=== PATIENT | female | born 1945 ===

== ENCOUNTER → 2022-02-10 13:35 | Outpatient (BNVA) | payer MEDICARE, SELFPAY | PROVIDERS: PCP Physician Assistant Medical; Visit Provider Internal Medicine Endocrinology, Diabetes & Metabolism | DX: M81.0 Age-related osteoporosis without current pathological fracture (principal) | CPT/HCPCS: 99202 ==

== ENCOUNTER → 2022-07-27 15:14 | Outpatient (BNVA) | payer MEDICARE, SELFPAY | PROVIDERS: PCP Physician Assistant Medical; Visit Provider Internal Medicine Endocrinology, Diabetes & Metabolism | DX: M81.0 Age-related osteoporosis without current pathological fracture (principal) | CPT/HCPCS: 99212 ==

== ENCOUNTER → 2023-01-25 12:39 | Outpatient (BNVA) | payer MEDICARE, SELFPAY | PROVIDERS: PCP Physician Assistant Medical; Visit Provider Internal Medicine Endocrinology, Diabetes & Metabolism | DX: M81.0 Age-related osteoporosis without current pathological fracture (principal) | CPT/HCPCS: 99212 ==

== ENCOUNTER 2024-01-29 13:45 | Outpatient (AMB) | payer MEDICARE, SELFPAY ==
--- NOTE | 2024-01-29 13:47 | A.OFFVIS_ITS ---
Vital Signs 01/29/24 13:49 Height 5 ft 2.91 in Weight 138 lb 14.259 oz BMI 24.7 BP 122/78 Pulse 72 Intake Visit Reasons: f/u osteoporosis Intake Note: Patient presents today for Osteoporosis follow up. Last seen by Dr. Velasquez on 01/25/2023. Systems Technician Required: No Accompanied by: Self / Same As Patient Allergies No Known Allergies Allergy (Verified 01/29/24 13:48) HPI Comments Details: The patient is a 78-year-old female who is seen today in follow-up for osteoporosis. She was 1st diagnosed 11/01/2021. She was started on alendronate 70 mg weekly, calcium and vitamin-D b.i.d. 07/27. She has no history of pathological fracture or ONJ. She takes all of her medications regularly. She occasionally uses omeprazole for occasional GERD. She denies ever using anticoagulant, anti epileptic or glucocorticoid medication. For weight-bearing exercise she walks up and down the stairs 10 times per day and does some housekeeping. Fracture history: No Height loss: 1 in but stable since her last visit [employer] history: regular menses, Menopause late 50s Denies history of kidney stones Denies family history of osteoporosis or fracture. UTD on dental cleanings and sees dentist every 6 months. No planned upcoming dental work or extractions. DXA dated 11/01/2021 shows T-score in the lumbar spine of-2.9 standard deviations and the T-score in the left femoral neck of-2.5 Labs: Secondary workup as previuously reviewed by Dr. Velasquez was negative. She denies bone pain PFSH Medical History Osteoporosis Surgical History History of colonoscopy Hx of eye surgery Family History Father Dialysis patient Mother Heart attack Social History Household Members: Friend(s) Alcohol intake: current Alcohol intake frequency: does not drink Patient Tobacco Use Status: Never used Tobacco Physical Exam Vital Signs: Last Vital Signs Pulse 72 01/29/24 13:49 BP 122/78 01/29/24 13:49 BMI result Body Mass Index 24.7 Const General: cooperative and healthy appearing Nutritional Appearance: average body habitus Orientation/consciousness: oriented to person Limitations: no limitations Neck Neck: Yes normal visual inspection and Yes no lymphadenopathy Thyroid: Thyroid normal Back/Spine/Pelvis Other: no tenderness over the vertebrae. Neuro General: oriented to person Assessment & Plan Assessment & Plan (1) Osteoporosis: Code(s): M81.0 - Age-related osteoporosis without current pathological fracture Category: Medical Plan: The patient has been on alendronate 70 mg weekly along with calcium vitamin-D supplementation b.i.d. since 07/27. We will obtain DEXA and blood work in addition to NTX urine. She would like to have the testing done at [facility] which is closer to her home. She was given orders for blood work, urine test and DEXA scan. If she has not heard from me about her results within 1 week of obtaining, she will contact me at the office. She will follow up in 1 year's time. Orders: Orders Vitamin D 25-OH Total Today M81.0 - Age-related osteoporosis without current pathological fracture XR DEXA axial skeleton Today M81.0 - Age-related osteoporosis without current pathological fracture XR DEXA vertrebral fracture Today M81.0 - Age-related osteoporosis without current pathological fracture Calcium Today M81.0 - Age-related osteoporosis without current pathological fracture Phosphorus Today M81.0 - Age-related osteoporosis without current pathological fracture Collagen Crosslinks NTX 7 Days M81.0 - Age-related osteoporosis without current pathological fracture Coding Level of Care Code Est Pt Level 3 (33824) Diagnoses Osteoporosis M81.0 Time Spent (min) 30 Comment I spent [30] minutes reviewing labs and diagnostic reports, reviewing previous provider no
[2024-01-29 13:49] VITALS: BP 122/78; PULSE 72; BMI 24.7
== END 2024-01-29 14:22 | disposition home or self-care (01) ==
PROVIDERS: PCP Physician Assistant Medical; Visit Provider Nurse Practitioner Adult Health
DX: M81.0 Age-related osteoporosis without current pathological fracture (principal)
CPT/HCPCS: 99214

== ENCOUNTER → 2024-01-29 13:45 | Outpatient (BNVA) | payer MEDICARE, SELFPAY | PROVIDERS: PCP Physician Assistant Medical; Visit Provider Nurse Practitioner Adult Health | DX: M81.0 Age-related osteoporosis without current pathological fracture (principal) | CPT/HCPCS: 99212 ==

== ENCOUNTER 2025-01-28 13:44 | Outpatient (AMB) | payer MEDICARE, SELFPAY ==
--- NOTE | 2025-01-28 13:49 | MHC.OFFVIS ---
Vital Signs 01/28/25 13:51 Height 5 ft 2.46 in Weight 143 lb 11.862 oz BMI 25.9 BP 146/78 H Blood Pressure Location Lt brachial Position Sitting Pulse 70 Pulse Source Pulse Oximeter Pulse Oximetry (%) 97 Oxygen Delivery Method Room Air Intake Visit Reasons: f/u Osteoporosis Intake Note: Patient present for Osteoporosis follow up visit. Field Identification Specialist Required: No Accompanied by: Self / Same As Patient Allergies No Known Allergies Allergy (Verified 01/28/25 13:52) Medication List - Last Reconciled 01/28/25 by Miko Velasquez MD alendronate 70 mg PO QWEEK calcium citrate-vitamin D3 315 mg-6.25 mcg (250 unit) 1 tab PO BID clonazepam 0.5 mg PO BEDTIME gabapentin 600 - 1,200 mg PO BEDTIME levothyroxine 125 mcg PO DAILY HPI Comments Details: 77 YO Female with is seen in consultation at the request of PCP for Osteoporosis. First diagnosed in 11/01/21. No history of pathologic fracture or ONJ. . Takes Calcium [id number] mg daily in divided doses. Takes 500 IU of Vitamin D daily. Denies ever using PPI, anticoagulant, antiepileptic or glucocorticoid medication. Not Does weight bearing exercise Fracture history: No Height loss: lost 1 inch [employer] A[employer] history: regular menses - menopause late 50 s Denies history of Kidney stones: Denies family history of Osteoporosis or hip fracture. UTD on dental cleanings and sees dentist every 6 months. No planned upcoming dental work or extractions. DXA dated 11/01/2021 shows T-score in the lumbar spine of-2.9 standard deviations and the T-score in the left femoral neck of-2.5 standard deviation: Labs: secondary workup was negative. On alendronate 70 mg q.week since 07/2022 The patient is a 79-year-old female presenting for osteoporosis management and preventative care. The patient has been on alendronate since July 2022, taking it once a week without any issues. She is active for her age and aims to prevent fractures. A urine test to assess the efficacy of alendronate was ordered but not completed due to technical issues. The patient is instructed to collect a second morning urine sample after fasting overnight. The patient is due for a bone density test in a year, which is part of her routine osteoporosis management. She is advised to schedule the test a month before her next visit. The patient reports lactose intolerance, which causes gastrointestinal discomfort when consuming dairy products. She is advised to use lactase supplements to manage symptoms. [facility] Medical History Osteoporosis Surgical History History of colonoscopy Hx of eye surgery Family History Father Dialysis patient Mother Heart attack Social History Household Members: Friend(s) Alcohol intake: current Alcohol intake frequency: does not drink Patient Tobacco Use Status: Never used Tobacco Physical Exam Vital Signs: Last Vital Signs Pulse 70 01/28/25 13:51 BP 146/78 H 01/28/25 13:51 Pulse Ox 97 01/28/25 13:51 Oxygen Delivery Method Room Air 01/28/25 13:51 BMI result Body Mass Index 25.9 Assessment & Plan Assessment & Plan (1) Osteoporosis: Code(s): M81.0 - Age-related osteoporosis without current pathological fracture Category: Medical Plan: This is a 79-year-old white female with a history of osteoporosis currently being treated with calcium and vitamin-D. Will continue current treatment with alendronate . We will check urine NTX. Assuming NTX is suppressed will repeat DEXA bone density 1 year's time and reassess need for alendronate that point 1. Osteoporosis Continue alendronate therapy. A urine test is ordered to assess efficacy, and a bone density test is scheduled for next year. I discussed the importance of continuing alendronate therapy to prevent fractures and the need for a urine test to assess its efficacy. We also talked about scheduling a bone density test in a year. - Continue taking alendronate once weekly. - Complete the urine test as instructed. - Schedule a bone density test for next year. - The patient had an opportunity to ask questions regarding treatment plan. The patient expressed understanding and agreement with the above treatment plan. Patient was informed and verbally consented to the use of an ambient scribe for clinic note documentation during this visit. Orders: Orders XR DEXA axial skeleton 1 Year M81.0 - Age-related osteoporosis without current pathological fracture Coding Level of Care Code Est Pt Level 3 (99156) Diagnoses Osteoporosis M81.0
[2025-01-28 13:51] VITALS: BP 146/78; PULSE 70; O2SAT 97; BMI 25.9
--- OUTSIDE RECORDS SUMMARY | 2025-01-28 16:19 | XMS_ITS | Data Portability ---
Author Organization [facility], Main Office Address [address] [facility] [address] [place] [id number] Care Team Providers Care Science Interpreter Name Role Phone RAJEEV HOOKS Technical Applications Scientist [facility] Sleep Medi cine PHYLLIS BROWN Molder Helper CHRISTIANO ZHENG Primary Care Provider [phone] KAREN SCHNEIDER Lead Mechanic [phone] Assessment No assessment recorded. Plan of Treatment Reminders Order Date Submit Date Provider Last Modified By Organization Details Last Modified Time Details Appointments FOLLOW UP 2024 01:30P M Christiano Zheng PAKenya Not available Not available Not available Lab BMP, serum or plasma 2024 025 ALEXANDER [facility] (Centralized Electronic Ordering - All Locations), Patient Can Go To The Location Of Their Choice, [id number] 01/28/2025 06:08:05 TSH, ultra-sen sitive, serum 2024 025 ALEXANDER [facility] (Centralized Electronic Ordering - All Locations), Patient Can Go To The Location Of Their Choice, [id number] 01/28/2025 06:08:06 HbA1c (hemoglob in A1c), blood 2024 025 ALEXANDER [facility] (Centralized Electronic Ordering - All Locations), Patient Can Go To The Location Of Their Choice, [id number] 10/14/2024 08:07:19 vitamin D, 25-hydrox y, total, serum 2024 025 ALEXANDER [facility], [address], [place], [address], 10/14/2024 08:07:20 CMP, serum or plasma 2024 025 NANCY [facility] (Centralized Electronic Ordering - All Locations), Patient Can Go To The Location Of Their Choice, [address] 10/14/2024 08:07:19 CBC w/ auto diff 2024 025 NANCY [facility] (Centralized Electronic Ordering - All Locations), Patient Can Go To The Location Of Their Choice, [address] 10/14/2024 08:07:18 TSH + free T4, serum 2023 024 NANCY [facility] (Centralized Electronic Ordering - All Locations), Patient Can Go To The Location Of Their Choice, [id number] 07/23/2024 06:08:10 Referral None recorded. Procedures None recorded. Surgeries None recorded. Imaging None recorded. Medication Orders olmesarta n 20 mg tablet [address] [facility] #[id number], [address] [place], [address], 10/22/2024 15:13:15 Patient Targets Encounter Date Encounter Id Patient Goals Patient Target Last Modified By Organization Details Last Modified Time 09/15/2024 [id number] vermin exterminator goal of Blood Pressure 140 / 90 Not available Not available Not available vermin exterminator goal of Exercise level Not available Not available Not available vermin exterminator goal of Tobacco Smoking Status Not available Not available Not available 09/15/2024 [id number] Pt advised and agrees to eat a low salt low fat diet; to do moderate exercise (such as walking) 150 minutes per week; to limit alcohol intake (goal of 2 drinks per day or less for men or 1 for woman). and to monitor dietary sodium. Will monitor home blood pressures and bring readings to appointments. Patient preferences and goals incorporated in plan and updated/modifie d as needed to reflect progress toward goal. pmadden Not available 09/15/2024 15:30:19 10/22/2024 [id number] residential goal of Blood Pressure 140 / 90 Not available Not available Not available vermin exterminator goal of Exercise level Not available Not available Not available vermin exterminator goal of Tobacco Smoking Status Not available Not available Not available 10/22/2024 [id number] Pt advised and agrees to eat a low salt low fat diet; to do moderate exercise (such as walking) 150 minutes per week; to limit alcohol intake (goal of 2 drinks per day or less for men or 1 for woman). and to monitor dietary sodium. Will monitor home blood pressures and bring readings to appointments. Patient preferences and goals incorporated in plan and updated/modifie d as needed to reflect progress toward goal. [email or web address] Not available 10/22/2024 15:08:19 Patient Instructions Encounter Date Encounter Id Patient Instructions Last Modified By Organization Details Last Modified Time 02/11/2024 [id number] During [facility] f/u call, all current and discharge medications (OTC, herbal therapies, supplements) reviewed and reconciled with patient, including potential side effects, drug interactions, instructions, and the consequences of not taking medication. Reviewed potential barriers to medication adherence, such as side effects from medication or cost of medication. wally Not available 02/11/2024 11:10:26 02/18/2024 [id number] At [facility] follow up visit, all current and discharge medications (OTC, herbal therapies, supplements) reviewed and reconciled with patient and or caregiver, including potential side effects, drug interactions, instructions, and the consequences of not taking medication. Reviewed potential barriers to medication adherence, such as side effects from medication or cost of medication. [email or web address] Not available 02/18/2024 14:25:01 04/09/2024 [id number] Medications (OTC , herbal therapies, supplements) reviewed and reconciled with patient and or caregiver, including potential side effects, drug interactions, instructions, and the consequences of not taking medication. Reviewed potential barriers to medication adherence, such as side effects from medication or cost of medication. pmadden Not available 04/09/2024 14:48:36 09/15/2024 [id number] advance care planning: care instructions pmadden Not available 09/15/2024 15:30:28 low sodium diet (2,000 milligram): care instructions pmadden Not available 09/15/2024 15:30:28 dash diet: care instructions pmadden Not available 09/15/2024 15:30:28 preventing falls : care instructions pmadden Not available 09/15/2024 15:30:28 well visit, over 65: care instructions pmadden Not available 09/15/2024 15:30:28 Medications (OTC , herbal therapies, supplements) reviewed and reconciled with patient and or caregiver, including potential side effects, drug interactions, instructions, and the consequences of not taking medication. Reviewed potential barriers to medication adherence, such as side effects from medication or cost of medication. pmadden Not available 09/15/2024 15:30:15 10/22/2024 [id number] dash diet: care instructions pmadden Not available 10/22/2024 15:13:13 check nonfasting labs before next office visit pmadden Not available 10/22/2024 15:14:35 Medications (OTC , herbal therapies, supplements) reviewed and reconciled with patient and or caregiver, including potential side effects, drug interactions, instructions, and the consequences of not taking medication. Reviewed potential barriers to medication adherence, such as side effects from medication or cost of medication. pmadden Not available 10/22/2024 15:08:43 Reason for Referral None Reported. Results Created Date Observation Date Name Description Value Unit Range Abnormal Flag Note LastModifiedBy Organization Detail LastModifiedTime 02/11/2002/12/2024 TSH+F REE T4 TSH 12.200 uIU/m L 0.450- 4.500 above high normal Not Available [facility] ([facility]) [address] [place], [address], 02/12/2024 06:08:15 02/11/2002/12/2024 TSH+F REE T4 T4,free(dire ct) 1.07 NG/dL 0.82-1 .77 Not Available [facility] ([facility]) [address] [place], [address], 02/12/2024 06:08:15 03/25/20 24 03/26/2024 TSH TSH 5.370 uIU/m L 0.450- 4.500 above high normal Not Available [facility] ([facility]) [address] [place], [address], 03/26/2024 06:09:11 07/22/2007/23/2024 TSH+F REE T4 TSH 0.304 uIU/m L 0.450- 4.500 below low normal Not Available [facility] ([facility]) [address] [facility] [place], [address], 07/23/2024 06:08:10 07/22/20 24 07/23/2024 TSH+F REE T4 T4,free(dire ct) 1.91 NG/dL 0.82-1 .77 above high normal Not Available [facility] ([facility]) [address] [place], [address], 07/23/2024 06:08:10 10/14/19 25 10/14/2024 TSH RFX ON ABNOR MAL TO FREE T4 TSH 2.950 uIU/m L 0.450- 4.500 normal Not Available [facility] ([facility]) [address] [place], [address], 10/14/2024 06:07:23 10/14/19 25 10/14/2024 CBC WITH DIFFE RENTI AL/PL ATELE T WBC 5.2 x10e3 /uL 3.4-10 .8 normal Not Available [facility] ([facility]) [address] [place], [address], 10/14/2024 08:07:18 10/14/19 25 10/14/2024 CBC WITH DIFFE RENTI AL/PL ATELE T RBC 4.33 x10e6 /uL 3.77-5 .28 normal Not Available [facility] ([facility]) [address] [place], [address], 10/14/2024 08:07:18 10/14/19 25 10/14/2024 CBC WITH DIFFE RENTI AL/PL ATELE T hemoglobin 14.0 g/dL 11.1-1 5.9 normal Not Available [facility] ([facility]) [address] [place], [address], 10/14/2024 08:07:18 10/14/1910/14/2024 CBC WITH DIFFE RENTI AL/PL ATELE T hematocrit 41.0 % 34.0-4 6.6 normal Not Available [facility] ([facility]) [address] [facility], [place], [address], 10/14/2024 08:07:18 10/14/1910/14/2024 CBC WITH DIFFE RENTI AL/PL ATELE T MCV 95 fL 79-97 normal Not Available [facility] ([facility]) [address] [place], [address], 10/14/2024 08:07:18 10/14/1910/14/2024 CBC WITH DIFFE RENTI AL/PL ATELE T MCH 32.3 pg 26.6-3 3.0 normal Not Available [facility] ([facility]) [address] [place], [address], 10/14/2024 08:07:18 10/14/1910/14/2024 CBC WITH DIFFE RENTI AL/PL ATELE T MCHC 34.1 g/dL 31.5-3 5.7 normal Not Available [facility] ([facility]) [address] [place], [address], 10/14/2024 08:07:18 10/14/1910/14/2024 CBC WITH DIFFE RENTI AL/PL ATELE T RDW 12.1 % 11.7-1 5.4 Not Available [facility] ([facility]) [address] [place], [address], 10/14/2024 08:07:18 10/14/1910/14/2024 CBC WITH DIFFE RENTI AL/PL ATELE T platelets 244 x10e3 /uL 150-45 0 normal Not Available [facility] ([facility]) [address] [place], [address], 10/14/2024 08:07:18 10/14/19 25 10/14/2024 CBC WITH DIFFE RENTI AL/PL ATELE T neutrophils 73 % not estab. normal Not Available [facility] ([facility]) [address] [facility], [place], [address], 10/14/2024 08:07:18 10/14/19 25 10/14/2024 CBC WITH DIFFE RENTI AL/PL ATELE T lymphs 18 % not estab. normal Not Available [facility] ([facility]) [address] [facility], [place], [address], 10/14/2024 08:07:18 10/14/19 25 10/14/2024 CBC WITH DIFFE RENTI AL/PL ATELE T monocytes 7 % not estab. normal Not Available [facility] ([facility]) [address] [facility], [place], [address], 10/14/2024 08:07:18 10/14/19 25 10/14/2024 CBC WITH DIFFE RENTI AL/PL ATELE T eos 1 % not estab. normal Not Available [facility] ([facility]) [address] [facility], [place], [address], 10/14/2024 08:07:18 10/14/19 25 10/14/2024 CBC WITH DIFFE RENTI AL/PL ATELE T basos 1 % not estab. normal Not Available [facility] ([facility]) [address] [facility], [place], [address], 10/14/2024 08:07:18 10/14/19 25 10/14/2024 CBC WITH DIFFE RENTI AL/PL ATELE T immature cells BOILERMAKER MECHANIC Not Available [facility] ([facility]) [address] [facility], [place], [address], 10/14/2024 08:07:18 10/14/19 25 10/14/2024 CBC WITH DIFFE RENTI AL/PL ATELE T neutrophils (absolute) 3.8 x10e3 /uL 1.4-7. 0 normal Not Available [facility] ([facility]) [address] [facility], [place], [address], 10/14/2024 08:07:18 10/14/19 25 10/14/2024 CBC WITH DIFFE RENTI AL/PL ATELE T lymphs (absolute) 0.9 x10e3 /uL 0.7-3. 1 normal Not Available [facility] ([facility]) [address] [facility], [place], [address], 10/14/2024 08:07:18 10/14/19 25 10/14/2024 CBC WITH DIFFE RENTI AL/PL ATELE T monocytes(ab solute) 0.4 x10e3 /uL 0.1-0. 9 normal Not Available [facility] ([facility]) [address] [facility], [place], [address], 10/14/2024 08:07:18 10/14/19 25 10/14/2024 CBC WITH DIFFE RENTI AL/PL ATELE T eos (absolute) 0.1 x10e3 /uL 0.0-0. 4 normal Not Available [facility] ([facility]) [address] [facility], [place], [address], 10/14/2024 08:07:18 10/14/19 25 10/14/2024 CBC WITH DIFFE RENTI AL/PL ATELE T baso (absolute) 0.0 x10e3 /uL 0.0-0. 2 normal Not Available [facility] ([facility]) [address] [facility], [place], [address], 10/14/2024 08:07:18 10/14/19 25 10/14/2024 CBC WITH DIFFE RENTI AL/PL ATELE T immature granulocytes 0 % not estab. Not Available [facility] ([facility]) [address] [facility], [place], [address], 10/14/2024 08:07:18 10/14/19 25 10/14/2024 CBC WITH DIFFE RENTI AL/PL ATELE T immature grans (abs) 0.0 x10e3 /uL 0.0-0. 1 Not Available [facility] ([facility]) [address] [facility], [place], [address], 10/14/2024 08:07:18 10/14/19 25 10/14/2024 CBC WITH DIFFE RENTI AL/PL ATELE T NRBC BOILERMAKER MECHANIC Not Available [facility] ([facility]) [address] [facility], [place], [address], 10/14/2024 08:07:18 10/14/19 25 10/14/2024 CBC WITH DIFFE RENTI AL/PL ATELE T hematology comments: BOILERMAKER MECHANIC Not Available [facility] ([facility]) [address] [facility], [place], [address], 10/14/2024 08:07:18 10/14/19 25 10/14/2024 COMP. METAB OLIC PANEL (14) glucose 118 mg/dL 70-99 above high normal Not Available [facility] ([facility]) [address] [facility], [place], [address], 10/14/2024 08:07:19 10/14/19 25 10/14/2024 COMP. METAB OLIC PANEL (14) BUN 16 mg/dL 8-27 normal Not Available [facility] ([facility]) [address] [facility], [place], [address], 10/14/2024 08:07:19 10/14/19 25 10/14/2024 COMP. METAB OLIC PANEL (14) creatinine 0.97 mg/dL 0.57-1 .00 normal Not Available [facility] ([facility]) [address] [facility], [place], [address], 10/14/2024 08:07:19 10/14/19 25 10/14/2024 COMP. METAB OLIC PANEL (14) eGFR 59 mL/mi n/1.7 3 >59 below low normal Not Available [facility] ([facility]) [address] [place], [address], 10/14/2024 08:07:19 10/14/19 25 10/14/2024 COMP. METAB OLIC PANEL (14) BUN/creatini ne ratio 16 12-28 normal Not Available [facility] ([facility]) [address] [place], [address], 10/14/2024 08:07:19 10/14/19 25 10/14/2024 COMP. METAB OLIC PANEL (14) sodium 144 mmol/ L 134-14 4 normal Not Available [facility] ([facility]) [address] [place], [address], 10/14/2024 08:07:19 10/14/19 25 10/14/2024 COMP. METAB OLIC PANEL (14) potassium 3.6 mmol/ L 3.5-5. 2 normal Not Available [facility] ([facility]) [address] [place], [address], 10/14/2024 08:07:19 10/14/19 25 10/14/2024 COMP. METAB OLIC PANEL (14) chloride 103 mmol/ L 96-106 normal Not Available [facility] ([facility]) [address] [facility] [place], [address], 10/14/2024 08:07:19 10/14/19 25 10/14/2024 COMP. METAB OLIC PANEL (14) carbon dioxide, total 26 mmol/ L 20-29 normal Not Available [facility] ([facility]) [address] [facility] [place], [address], 10/14/2024 08:07:19 10/14/19 25 10/14/2024 COMP. METAB OLIC PANEL (14) calcium 10.0 mg/dL 8.7-10 .3 normal Not Available [facility] ([facility]) [address] [facility] [place], [address], 10/14/2024 08:07:19 10/14/19 25 10/14/2024 COMP. METAB OLIC PANEL (14) protein, total 6.5 g/dL 6.0-8. 5 normal Not Available [facility] ([facility]) [address] [facility] [place], [address], 10/14/2024 08:07:19 10/14/19 25 10/14/2024 COMP. METAB OLIC PANEL (14) albumin 4.4 g/dL 3.8-4. 8 normal Not Available [facility] ([facility]) [address] [facility] [place], [address], 10/14/2024 08:07:19 10/14/19 25 10/14/2024 COMP. METAB OLIC PANEL (14) globulin, total 2.1 g/dL 1.5-4. 5 Not Available [facility] ([facility]) [address] [facility] [place], [address], 10/14/2024 08:07:19 10/14/19 25 10/14/2024 COMP. METAB OLIC PANEL (14) bilirubin, total 0.6 mg/dL 0.0-1. 2 normal Not Available [facility] ([facility]) [address] [facility] [place], [address], 10/14/2024 08:07:19 10/14/19 25 10/14/2024 COMP. METAB OLIC PANEL (14) alkaline phosphatase 67 IU/L 44-121 normal Not Available [facility] ([facility]) [address] [facility] [place], [address], 10/14/2024 08:07:19 10/14/19 25 10/14/2024 COMP. METAB OLIC PANEL (14) AST (SGOT) 25 IU/L 0-40 normal Not Available [facility] ([facility]) [address] [facility] [place], [address], 10/14/2024 08:07:19 10/14/19 25 10/14/2024 COMP. METAB OLIC PANEL (14) ALT (SGPT) 14 IU/L 0-32 normal Not Available [facility] ([facility]) [address] [place], [address], 10/14/2024 08:07:19 10/14/19 25 10/14/2024 HEMOG LOBIN A1C hemoglobin A1C 5.2 % 4.8-5. 6 normal Predi abete s: 5.7 - 6.4 Diabe hortensia: >6.4 Glyce alanna contr ol for adult s with diabe hortensia: <7.0 Not Available [facility] ([facility]) [address] [facility], [place], [address], 10/14/2024 08:07:19 10/14/1910/14/2024 VITAM IN D, 25-HY DROXY vitamin D, 25-hydroxy 34.5 NG/mL 30.0-1 00.0 Vitam in D defic iency has been defin ed by the Insti tute of Medic ine and an Endoc rine Socie ty pract ice guide line as a level of serum 25-OH vitam in D less than 20 ng/mL (1,2) . The Endoc rine Socie ty went on to [facility] er defin e vitam in D insuf ficie ncy as a level betwe en 21 and 29 ng/mL (2). 1. IOM (Inst itute of Medic ine). 2010. Dieta ry refer ence intak es for calci um and D. Nabil gaffney [place]: The [facility] Press . 2. Heri blancas MF, Maggi velasquez [place], Dayana off-F yusef i STEVENSON, et al. Evalu ation , treat ment, and preve ntion of vitam in D defic iency : an Endoc rine Socie ty clini donna pract ice guide line. JCEM. 2010; 96(7) :1911 -30. Not Available [facility] ([facility]) [address] [facility], [place], [address], 10/14/2024 08:07:20 Result Notes None recorded. Problems Name Problem SNOMED Code Status Onset Date Resolution Date Notes Provider Name and Address Organization Details Recorded Time Epigastr ic pain 36020629 Completed 201303/12/2014 RECORDED 10/09/19 14 10:01AM BY MARGO OLIVA MA, CHEPE ON/ADDEN DUM Not Available [facility] 4 12:41:44 Screenin g for malignan t neoplasm of breast Completed 201103/12/2014 RECORDED 07/25/20 12 9:39AM BY MARGO OLIVA MA, CHEPE ON/ADDEN DUM Not Available [facility] 4 12:41:44 Screenin g for malignan t neoplasm of colon Completed 201103/12/2014 RECORDED 07/25/20 12 9:39AM BY MAGRO OLIVA MA, CHEPE ON/ADDEN DUM Not Available [facility] 4 12:41:45 Elevated blood-pr essure reading without diagnosi s of hyperten deb 108872278 Completed 201103/12/2014 RECORDED 07/25/20 12 9:39AM BY MARGO OLIVA MA, ANNOTATI ON/ADDEN DUM Not Available [facility] 4 12:41:45 General examinat ion of patient Completed 200703/12/2014 RECORDED 04/03/20 08 8:50AM BY KAREN LOERA, CHEPE ON/ADDEN DUM Not Available [facility] 4 12:41:45 Otalgia 01220149 Completed 201103/12/2014 RECORDED 07/25/20 12 9:39AM BY MARGO OLIVA MA, JETATI ON/ADDEN DUM Not Available [facility] 4 12:41:45 Epigastr ic pain 92075262 Completed 201303/13/2014 RECORDED 10/09/19 14 10:01AM BY MARGO OLIVA MA, JETATI ON/ADDEN DUM Not Available [facility] 4 03:44:14 Screenin g for malignan t neoplasm of breast Completed 201103/13/2014 RECORDED 07/25/20 12 9:39AM BY MARGO OLIVA MA, ANNOTATI ON/ADDEN DUM Not Available [facility] 4 03:44:14 Screenin g for malignan t neoplasm of colon Completed 201103/13/2014 RECORDED 07/25/20 12 9:39AM BY MARGO OLIVA MA, ANNOTATI ON/ADDEN DUM Not Available [facility] 4 03:44:14 Elevated blood-pr essure reading without diagnosi s of hyperten deb 530680455 Completed 201103/13/2014 RECORDED 07/25/20 12 9:39AM BY MARGO OLIVA MA, ANNOTATI ON/ADDEN DUM Not Available [facility] 4 03:44:14 General examinat ion of patient Completed 200703/13/2014 RECORDED 04/03/20 08 8:50AM BY CHEPE CASE ON/ADDEN DUM Not Available [facility] 4 03:44:14 Otalgia 54726673 Completed 201103/13/2014 RECORDED 07/25/20 12 9:39AM BY MARGO OLIVA MA, ANNOTATI ON/ADDEN DUM Not Available [facility] 4 03:44:14 Eczema 16584561 Active Not Available [facility] 3 12:35:39 Osteoart hritis of knee 194326435 Active 2013 Not Available [facility] 3 12:35:39 Advance directiv e discusse d with patient 461877557 Active Not Available [facility] 3 12:35:39 Skin lesion 73036004 Completed 10/25/2016 KAREN Arredondo MA [facility] 7 13:47:11 Chronic kidney disease stage 3 842306555 Active 2020 Not Available [facility] 3 12:35:39 Restless legs 36280829 Active 2021 Not Available [facility] 3 12:35:39 History of thyroide ctomy 497342305 Active 2021 Not Available [facility] 3 12:35:39 Heart murmur 71583735 Active 2021 Not Available [facility] 3 12:35:39 Anxiety 57125781 Active 2021 Not Available [facility] 3 12:35:39 Dysfunct ion of eustachi an tube 67486763 Active 2022 Not Available [facility] 3 12:35:39 Dysfunct ion of eustachi an tube 83876876 Active 2022 Not Available [facility] 3 12:35:39 [facility] hyperten deb 47406604 Active 2024 Seth degroot [facility] 5 14:50:25 Impaired fasting glycemia 968178357 Active 2024 Seth degroot [facility] 5 14:56:20 Epigastr ic pain 01928178 Completed 201302/17/2014 RECORDED 10/09/19 14 10:01AM BY MARGO OLIVA MA, CHEPE ON/ADDEN DUM Not Available [facility] 4 14:22:45 Adult health examinat ion Completed 201303/31/2020 Christiano Zheng PA-C [address] [facility] [address], [place], [phone] , [facility] 0 15:33:03 Screenin g for malignan t neoplasm of breast Completed 201102/17/2014 RECORDED 07/25/20 12 9:39AM BY MARGO OLIVA MA, CHEPE ON/ADDEN DUM Not Available [facility] 4 14:22:46 Screenin g for malignan t neoplasm of colon Completed 201102/17/2014 RECORDED 07/25/20 12 9:39AM BY MARGO OLIVA MA, CHEPE ON/ADDEN DUM Not Available [facility] 4 14:22:46 Elevated blood-pr essure reading without diagnosi s of hyperten deb 690274842 Completed 201102/17/2014 RECORDED 07/25/20 12 9:39AM BY MARGO OLIVA MA, CHEPE ON/ADDEN DUM Not Available [facility] 4 14:22:46 [facility] hyperten deb 46535868 Completed 201303/31/2020 Seth degroot, [facility] 5 14:50:25 Malaise and fatigue 518698548 Active 2013 Not Available [facility] 3 12:35:39 Malaise and fatigue 104980668 Completed 201102/17/2014 RECORDED 07/25/20 12 9:39AM BY MARGO OLIVA MA, CHEPE ON/ADDEN DUM KAREN Arredondo, [facility] 7 13:46:52 Influenz a vaccine needed [id number] 06 Completed 201303/20/2014 RECORDED 10/09/19 14 10:15AM BY MARGO OLIVA MA, OFFICE VISIT [facility] [address] [place] [address], [place], [phone] , [facility] 4 13:06:54 General examinat ion of patient Completed 200702/17/2014 RECORDED 04/03/20 08 8:50AM BY KAREN LOERA, CHEPE ON/ADDEN DUM Not Available [facility] 4 14:22:46 Gastroes ophageal reflux disease 675965506 Active 2013 Not Available [facility] 3 12:35:39 Hyperlip idemia 47461823 Active 2013 Not Available [facility] 3 12:35:39 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 I rec. that you increase your suppleme nt a little more - double up on your 112mcg 3x/week (Mon/Wed /Fri) and continue 1 tab daily on all other days. - Carol Zheng PA-C [address] [facility] [address], [place], [address] , [facility] 4 19:46:57 Hypothyr oidism 29700838 Completed 200902/17/2014 RECORDED 01/12/20 10 2:12PM BY MARGO OLIVA MA, ANNOTATI ON/ADDEN DUM Christiano Zheng PA-C [address] [facility] [address], [place], [address] , [facility] 4 19:46:57 Insomnia 297062625 Active 2013 Not Available [facility] 3 12:35:39 Menopaus al symptom 64180577 Active 2013 Not Available [facility] 3 12:35:39 Patient status finding [id number] Completed 201303/20/2014 RECORDED 10/09/19 14 10:02AM BY MARGO OLIVA MA, OFFICE VISIT THIAGO Szymanski [address] [facility] [address], [place], [address] , [facility] 4 13:06:54 Osteopor osis 61636251 Active 2013 Not Available [facility] 3 12:35:39 Otalgia 04753570 Completed 201102/17/2014 RECORDED 07/25/20 12 9:39AM BY MARGO OLIVA MA, ANNOTATI ON/ADDEN DUM Not Available [facility] 4 14:22:47 [facility] [id number] Completed 201304/23/2019 Christiano Zheng PA-C [address], [place], [address] , [facility] 9 14:12:37 Vitamin D deficien 99655080 Active 2013 Not Available [facility] 3 12:35:39 Problem Notes None recorded. Procedures Surgical History Date Name Laterality Status Provider Name and Address Organization Details Recorded Time 5 Advanced Care Planning completed Taylor Arrington LPN [facility] 09/15/2024 14:12:21 3 Colonoscopy completed Christiano Zheng PA-C [address] [facility] [address], [place], [address], [facility] 03/05/2023 14:17:23 2 Most Recent Bone Density completed Nicole Jensen [facility] 11/22/2021 16:32:58 2 Most Recent Mammogram completed Nicole Jensen [facility] 11/08/2021 14:47:42 2 Mammogram Screening completed Christiano Zheng PA-C [address] [facility] [address], [place], [address], [facility] 09/10/2023 13:52:05 0 Six-Item Cognitive Test completed Anna Todd MA [facility] 03/31/2020 14:54:49 9 Mini-Cog Test completed Margo delaney MA [facility] 10/21/2018 15:24:49 8 Eye Surgery completed Margo delaney MA [facility] 10/21/2018 15:19:56 8 Mini-Cog Test completed Margo delaney MA [facility] 10/26/2017 10:44:50 7 Fall Risk Assessment completed Margo delaney [facility] 10/25/2016 13:57:44 7 Mini-Cog Test completed Margo delaney [facility] 10/25/2016 13:59:19 6 Fall Risk Assessment completed Margo delaney [facility] 10/29/2015 10:36:57 6 Mini-Cog Test completed Margo delaney, [facility] 10/29/2015 10:38:54 6 Advanced Care Planning completed Margo delaney [facility] 10/29/2015 10:27:51 4 Dxa bone density ashkan vrt fx completed Margo delaney [facility] 10/25/2016 13:49:29 1 Date of Last Colonoscopy completed Maria Guadalupe Lord [facility] 10/09/2014 10:44:40 0 Cataract Surgery completed Margo delaney [facility] 10/21/2018 15:19:15 Thyroid Surgery completed Christiano Zheng PA-C [address], [address], [facility] 04/23/2019 14:08:22 Imaging Results None recorded. Procedure Notes None recorded. Medical Equipment None Reported. Allergies No known drug allergies Medications Name Sig Start Date Stop Date Status Note LastModified by Organization Details LastModified Time Vitamin C 500 mg tablet Take 1 tablet every day by oral route. active Not Available Not Available No t Available triamcino lone acetonide 0.5 % topical cream APPLY A THIN LAYER TO THE AFFECTED AREA(S) BY TOPICAL ROUTE 2 TIMES PER DAY 03/31 completed Not Available Not Available Not Available sucralfat e 1 gram tablet Take 1 tablet twice a day by oral route for 30 days. active Not Available Not Available No t Available alendrona te 70 mg tablet TAKE 1 TABLET BY MOUTH EVERY WEEK active Not Available Not Available No t Available clonazepa m 0.5 mg tablet TAKE 1 TABLET BY MOUTH EVERY DAY AT BEDTIME NEEDED FOR 30 DAYS 09/15 completed Not Available Not Available Not Available Ferrex 150 mg iron capsule TAKE ONE CAPSULE BY MOUTH EVERY DAY 10/22 completed Not Available Not Available Not Available clonazepa m 1 mg tablet Take 1 tablet every day by oral route at bedtime for 30 days. 10/21 completed Not Available Not Available Not Available omeprazol e 40 mg capsule,d elayed release TAKE 1 CAPSULE BY MOUTH TWICE A DAY 12/19 completed Not Available Not Available Not Available Fluticaso ne Propionat e (Inhal) 50 mcg/BLIST inhl powd DAILY 06/23 completed RECORDED 09/06/19 10 1:22PM BY HEAVEN JORDAN I, MEDICATI ON AUTO-DANIEL CTIVATIO N; Not Available Not Available Not Available erythromy harriett 5 mg/gram (0.5 %) eye ointment APPLY 1/4INCH STRIP TO THE RIGHT EYE AT BEDTIME 09/10 completed PRN Not Available Not Available Not Available levothyro xine 125 mcg tablet TAKE 1 TABLET BY MOUTH EVERY DAY 08/25 completed Not Available Not Available Not Available gabapenti n 300 mg capsule TAKE 1-3 CAPSULES BY MOUTH AT BEDTIME FOR RLS 09/15 completed Not Available Not Available Not Available doxycycli ne hyclate 100 mg tablet 04/23 completed Not Available Not Available Not Available levothyro xine 112 mcg tablet TAKE 1 TABLET BY MOUTH EVERY DAY AND TAKE 2 TABLETS ON SUN/SUN active Not Available Not Available No t Available Vitamin D 50,000 unit capsule ONCE A WEEK 01/11 completed RECORDED 01/12/20 10 3:23PM BY RAJI HELM MD, OFFICE VISIT;TH IS ORDER DISCONTI NUED PER MEDI-SPA N. Not Available Not Available Not Available olmesarta n 20 mg tablet TAKE 1 TABLET BY MOUTH EVERY DAY 2024 active Not Available Not Available Not Avai lable azithromy harriett 500 mg tablet 10/21 completed Not Available Not Available Not Available Vitamin D3 25 mcg (1,000 unit) capsule Take 1 capsule every other day by oral route. 03/03 completed Not Available Not Available Not Available gabapenti n 300 mg tablet Take 4 tablets every day by oral route at bedtime. 08/18 completed sleep clinic Not Available Not Available Not Available Boostrix Tdap 2.5 Lf unit-8 mcg-5 Lf/0.5 mL intramusc ular syringe 10/21 completed Not Available Not Available Not Available Chilo's Leg Cramp 3 caplets hs active Not Available Not Available No t Available cholecalc iferol (vitamin D3) 50 mcg (2,000 unit) capsule TAKE 1 CAPSULE BY MOUTH EVERY DAY 03/31 completed Not Available Not Available Not Available calcium 315 mg (as citrate)- vitamin D3 6.25 mcg (250 unit) tablet TAKE 1 TABLET BY MOUTH TWICE A DAY 2023 active takes daily Not Available Not Available Not Available Suprep Bowel Prep Kit 17.5 gram-3.13 gram-1.6 gram oral solution COMPLETE PER SPLIT PREP INS 09/06 completed Not Available Not Available Not Available Osteo Bi-Flex 250 mg-200 mg tablet DAILY 09/28 completed RECORDED 09/28/19 11 11:05AM BY MARGO OLIVA MA, OFFICE VISIT; Not Available Not Available Not Available Fluarix Quad 2886-3458 (PF) 60 mcg (15 mcg x 4)/0.5 mL IM syringe active Not Available Not Available Not Available Fluvirin (PF) 45 mcg (15 mcg x3)/0.5 mL intramusc ular syringe active Not Available Not Available Not Available Fluad 65yr up(PF)45 mcg(15 mcgx3)/0. 5 mL intramusc ular syringe 10/21 completed Not Available Not Available Not Available Shingrix (PF) 50 mcg/0.5 mL intramusc ular suspensio n, kit 01/26 completed Not Available Not Available Not Available Fluad Quad (65yr up)(PF) 60 mcg (15 mcg x 4)/0.5mL IM syringe PHARMACY ADMINIST ERED 12/19 completed Not Available Not Available Not Available Vitals Date Recorded Systolic blood pressure Diastolic blood pressure Provider Name and Address Organization Details Last Updated DateTime 09/15/2024 150 mm[Hg] 82 mm[Hg] Christiano Zheng PA-C [address] [address], [place], [address], [facility] 09/15/2024 15:26:27 Date Recorded Body height Body mass index (BMI) Body weight Heart rate Oxygen saturation Oxygen saturation in Arterial blood by Pulse oximetry Body temperature Systolic blood pressure Diastolic blood pressure Provider Name and Address Organization Details Last Updated DateTime 5 162.56 cm 21.6 kg/m2 55244.6 4 g 66 /min 98 % 98 % 98.3 [degF] 165 mm[Hg] 89 mm[Hg] Taylor Arrington LPN [facility] 5 14:22:38 Date Recorded Systolic blood pressure Diastolic blood pressure Provider Name and Address Organization Details Last Updated DateTime 10/22/2024 142 mm[Hg] 90 mm[Hg] Seth Hays [facility] 10/22/2024 14:44:28 Date Recorded Body height Body mass index (BMI) Body weight Oxygen saturation Oxygen saturation in Arterial blood by Pulse oximetry Heart rate Body temperature Systolic blood pressure Diastolic blood pressure Provider Name and Address Organization Details Last Updated DateTime 5 162.56 cm 23.7 kg/m2 62479.7 5 g 99 % 99 % 123 /min 97.8 [degF] 148 mm[Hg] 94 mm[Hg] Anna Todd MA [facility] 5 14:14:34 Date Recorded Body height Body mass index (BMI) Body weight Heart rate Oxygen saturation Oxygen saturation in Arterial blood by Pulse oximetry Body temperature Systolic blood pressure Diastolic blood pressure Provider Name and Address Organization Details Last Updated DateTime 4 162.56 cm 23.5 kg/m2 94232.1 5 g 70 /min 97 % 97 % 97.9 [degF] 142 mm[Hg] 89 mm[Hg] Naida Wood MA [facility] 4 14:29:53 Date Recorded Body height Body mass index (BMI) Body weight Heart rate Oxygen saturation Oxygen saturation in Arterial blood by Pulse oximetry Body temperature Systolic blood pressure Diastolic blood pressure Provider Name and Address Organization Details Last Updated DateTime 4 162.56 cm 23.9 kg/m2 86511.7 4 g 69 /min 97 % 97 % 97.2 [degF] 152 mm[Hg] 90 mm[Hg] Natty RdzmarinaKAREN [facility] 14:05:01 Date Recorded Systolic blood pressure Diastolic blood pressure Provider Name and Address Organization Details Last Updated DateTime 04/09/2024 138 mm[Hg] 82 mm[Hg] Nicole Emerson [facility] 04/09/2024 14:26:21 Social History Question Answer Notes LastModified by Organizat ion Details LastModified Time Tobacco Smoking Status Never Smoker Maria Guadalupe Lord MA [facility] 10/09/2014 10:43:16 Do You Have An Advance Directive? Yes Information not available 12/19/2021 Animal Exposure? Yes Informat ion not available 12/19/2021 Do You Wear A Helmet When Biking? Yes Information not available 12/19/2021 Is Blood Transfusion Acceptable In An Emergency? Yes Information not available 10/09/2014 What Is Your Level Of Caffeine Consumption? Moderate Diet Sodas Daily Information not available 09/06/2022 How Much Tobacco Do You Chew? None Information not available 10/09/2014 In The 14 Days Before Symptom Onset, Have You Had Close Contact With A Laboratory-confi rmed COVID-19 While That Case Was Ill? No Information not available 12/19/2021 In The 14 Days Before Symptom Onset, Have You Had Close Contact With A Person Who Is Under Investigation For COVID-19 While That Person Was Ill? No Information not available 12/19/2021 Have You Been To An Area Known To Be High Risk For COVID-19? No Information not available 12/19/2021 What Type Of Diet Are You Following? REGULAR Information not available 10/09/2014 Which Illicit Or Recreational Drugs Have You Used? None Information not available 10/29/2015 Education 12 Information no t available 12/19/2021 Have There Been Any Changes To Your Family Or Social Situation? No Information not available 12/19/2021 How Many Days In The Past Year Have You Had A Heavy Drinking Consumption (4+ Female, 5+ Male)? 0 Information not available 10/09/2014 Are There Any Guns Present In Your Home? Yes Information not available 12/19/2021 Legally Blind In One Or Both Eyes? No Information not available 12/19/2021 Live Alone Or With Others? Alone (Nishant) September 2018 Information not available 12/19/2021 Do You Take Precautions To Prevent Distracted Driving? Yes Information not available 10/29/2015 How Often Do You Need To Have Someone Help You When You Read Instructions, Pamphlets, Or Other Written Material From Your Doctor Or Pharmacy? Never Information not available 10/29/2015 Have You Served In The ? No Information not available 10/25/2016 Have You Or Anyone In Your Household Had Any Of The Following Symptoms In The Last 14 Days: Sore Throat, Cough, Chills, Body Aches For Unknown Reasons, Shortness Of Breath For Unknown Reasons, Loss Of Smell, Loss Of Taste, Fever At Or Greater Than 100 Degrees Fahrenheit? No [email or web address] Information not available 03/31/2020 Are You Or Anyone In Your Household A Health Care Provider Or Emergency Responder? No [email or web address] Information not available 03/31/2020 To The Best Of Your Knowledge Have You Been In Close Proximity To Any Individual Who Tested Positive For COVID-19? No Information not available 03/31/2020 *AWV ONLY* Are You Presently Prescribed Opioid Medication By PCP Or Specialist? If YES -Provider Assess The Benefit For Other, Non-opioid Pain Therapies Instead, Even If The Patient Does Not Have OUD But Is Possibly At Risk. No [email or web address] Information not available 03/31/2020 Marital Status Informatio n not available 12/19/2021 What Was The Date Of Your Most Recent Tobacco Screening? 09/15/2024 [email or web address] Information not available 09/15/2024 Total Number Of Stairs In Home 1 Information not available 12/19/2021 How Many Children Do You Have? 0 Information not available 10/09/2014 Difficulty Reading? No Information not available 12/19/2021 Do You Use Your Seat Belt Or Car Seat Routinely? Yes [email or web address] Information not available 08/18/2021 Seat Belts Used Routinely Yes Information not available 12/19/2021 Are You Sexually Active? No Information not available 10/09/2014 Smoke Alarm In Home Yes Information not available 12/19/2021 Do You Have Smoke And Carbon Monoxide Detectors In Your Home? Yes [email or web address] Information not available 08/18/2021 At What Age Did You Start Smoking Tobacco? 0 Information not available 10/29/2015 Are You Passively Exposed To Smoke? No Information not available 10/29/2015 How Much Tobacco Do You Smoke? No Information not available 10/29/2015 What Types Of Sporting Activities Do You Participate In? 0 Information not available 10/09/2014 Do You Use Sunscreen Routinely? No Information not available 10/09/2014 How Many Years Have You Smoked Tobacco? 0 Information not available 10/29/2015 Do You Have Difficulty Walking Or Climbing Stairs? No Information not available 12/19/2021 Sex: Unknown Functional Status Question Answer Note LastModified by Organizat ion Details LastModified Time Do you use any illicit or recreational drugs? No Information not available 12/19/2021 What is your level of alcohol consumption? None Information not available 10/09/2014 Do you or have you ever used smokeless tobacco? Never used smokeless tobacco [email or web address] Information not available 03/31/2020 Are you currently employed? No retired Information not available 10/29/2015 Difficulty driving at night? No Information not available 12/19/2021 Are you able to walk? YESWOREST Information not available 09/06/2022 Are you able to care for yourself? Yes Information not available 10/09/2014 What is your occupation? Other [employer] Information not available 12/31/2024 Do you have difficulty dressing or bathing? No Information not available 12/19/2021 Do you or have you ever used e-cigarettes or vape? Never used electronic cigarettes Information not available 12/19/2021 What is your exercise level? None Information not available 10/29/2015 Mental Status Question Answer Note LastModified by Organization D etails LastModified Time Do you have difficulty concentrating, remembering or making decisions? No Information no t available 12/19/2021 Family History Relationship Description Onset Age of this Age Resolved Age Notes LastModified by Organization Details LastModified Time Maternal Aunt Malignant tumor of breast [email or web address] Not available 2017 11:08:59 Father Renal failure syndrome Not available 2021 13:30:45 Mother Myocardial infarction 66 Not available 12/19 13:30:45 Brother Diabetes mellitus 76 [email or web address] Not available 2018 15:54:36 Brother Malignant tumor of stomach 80 81 [email or web address] Not available 09/15 14:25:03 Medical History Condition Response Coronary Artery Disease N Gout N Other N Kidney Stones N Blood Diseases N Hyperthyroidism N COPD N Depression N Headaches/Migraines N Anxiety Disorder N Obesity N Vision or Eye Problems N Arthritis N Polyps N Infertility N Acid Reflux (GERD) N Cancer N Stroke N Fibromyalgia N Kidney Disease N Heart Problems N Ear or Hearing Problems N Hospitalizations N Acne N Eating Disorder N Skin Problems N Constipation N Bladder Problems N Tuberculosis N AIDS/HIV N Asthma N Allergies N Hepatitis N Pulmonary Embolism N Chicken Pox N Autism Spectrum Disorder (ASD) N Breast Cancer N Lung Disease N Hypothyroidism N Defects or Inherited Disease N Anesthesia Complications N Varicose Veins N Head Injury/Concussion N Congenital Anomalies N ADHD N Endometriosis N High Cholesterol N Liver Disease N Thyroid Problems N GI Problems N Anemia N Mental Illness N Diabetes N Ovarian Cancer N Blood Transfusions N Seizures/Epilepsy N Congestive Heart Failure (CHF) N Eczema N Abuse/Domestic Violence N Diverticulitis N Reflux/GERD N Hypertension N Osteoporosis N Gynecological History Statement/Question Response Date of Last Pap Smear Date of Last Colonoscopy 08/16/2010 Most Recent Mammogram 10/30/2021 Most Recent Bone Density 11/01/2021 Obstetrics History GPAL:G 0 P 0 0 0 0 Immunizations Vaccine Type Date Status Note Provider Anthony richter and Address Organization Details Recorded Time Influenza, adjuvanted, trivalent, PF 7 completed Anna degroot [facility] 06/25/2023 08:43:16 zoster live 8 completed Anna Johnson null, [facility] 06/25/2023 08:43:16 Tdap 8 completed Anna Johnson null, [facility] 06/25/2023 08:43:16 Influenza, split virus, quadrivalent, preservative 9 completed Anna Johnson null, [facility] 06/25/2023 08:43:16 zoster recombinant 9 completed Anna Johnson null, [facility] 06/25/2023 08:43:16 COVID-19, mRNA, LNP-S, PF, 30 mcg/0.3 mL dose 1 completed Anna Johnson null, [facility] 06/25/2023 08:43:16 COVID-19, mRNA, LNP-S, PF, 30 mcg/0.3 mL dose 1 completed Anna Johnson null, [facility] 06/25/2023 08:43:16 Influenza, adjuvanted, quadrivalent, PF 1 completed Anna Johnson null, [facility] 06/25/2023 08:43:16 COVID-19, mRNA, LNP-S, PF, 30 mcg/0.3 mL dose 1 completed Anna Johnson null, [facility] 06/25/2023 08:43:16 Influenza, split virus, trivalent, PF 5 completed Anna Johnson null, [facility] 06/25/2023 08:43:16 zoster recombinant 8 completed Anna Johnson null, [facility] 06/25/2023 08:43:16 Influenza, split virus, quadrivalent, PF 4 completed Anna Johnson null, [facility] 06/25/2023 08:43:16 Influenza, high-dose, trivalent, PF 3 completed Anna Johnson null, [facility] 06/25/2023 08:43:16 Influenza, adjuvanted, trivalent, PF 8 completed Anna Johnson null, [facility] 06/25/2023 08:43:16 zoster live 3 completed Anna Johnson null, [facility] 06/25/2023 08:43:16 COVID-19, mRNA, LNP-S, bivalent, PF, 30 mcg/0.3 mL dose 2 completed Anna Johnson null, [facility] 06/25/2023 08:43:16 Influenza, adjuvanted, quadrivalent, PF 2 completed Anna Johnson null, [facility] 06/25/2023 08:43:16 Pneumococcal conjugate PCV 13 6 completed Not Available [facility] 08/23/2019 02:21:36 Influenza, adjuvanted, quadrivalent, PF 3 completed Natty Camara MA null, [facility] 11/07/2023 14:37:16 COVID-19, mRNA, LNP-S, PF, tiffany-sucrose, 30 mcg/0.3 mL 3 completed Natty Camara MA null, [facility] 11/07/2023 14:37:16 Influenza, high-dose, trivalent, PF 4 completed Natty Camara MA null, [facility] 04/09/2024 13:55:19 Td (adult), 2 Lf tetanus toxoid, preservative free, adsorbed 7 completed Anna Johnson null, [facility] 06/25/2023 08:43:16 pneumococcal polysaccharide PPV23 7 completed Anna Johnson null, [facility] 06/25/2023 08:43:16 zoster live 3 completed Anna Johnson null, [facility] 06/25/2023 08:43:16 pneumococcal polysaccharide PPV23 8 completed Not Available [facility] 08/23/2019 02:21:28 Past Encounters Encounter ID Performer Location Encounter Start Date Encounter Closed Date Diagnosis/Indication Diagnosis SNOMED-CT Code Diagnosis ICD10 Code Diagnosis Note [id number] autoEComm erce [address] [facility] [place] [address] 03/20/2007 00:00:00 [id number] autoEComm erce [address] [facility] [place] [address] 07/05/2007 00:00:00 [id number] autoEComm erce [address] [facility] [place] [address] 01/02/2008 00:00:00 [id number] autoEComm erce [address] [facility] [place] [address] 04/03/2008 00:00:00 [id number] autoEComm erce [address] [facility] [place] [address] 10/19/2008 00:00:00 [id number] autoEComm erce [address] [facility] [place] [address] 05/24/2009 00:00:00 [id number] autoEComm erce [address] [facility] [place] [address] 06/04/2009 00:00:00 [id number] autoEComm erce [address] [facility] [place] [address] 09/21/2009 00:00:00 [id number] autoEComm erce [address] [facility] [place] [address] 01/11/2010 00:00:00 [id number] autoEComm erce [address] [facility] [place] [address] 03/28/2010 00:00:00 [id number] autoEComm erce [address] [facility] [place] [address] 09/28/2010 00:00:00 [id number] autoEComm erce [address] [facility] [place], [place] [address] 04/03/2011 00:00:00 [id number] autoEComm erce [address] [facility] [place], [place] [address] 10/02/2011 00:00:00 [id number] autoEComm erce [address] [facility] [place], [place] [address] 10/04/2012 00:00:00 [id number] autoEComm erce [address] [facility] [place], [place] [address] 10/08/2013 00:00:00 [id number] Raji Helm MD Main Office [address] [facility] [address] [place] [address] 10/09/2014 10:33:11 10/09/2014 11:56:16 Adult health examination [id number] Gastroesop hageal reflux disease 763680349 Osteoporosis 20050930 La bs DEXA scan was October 2013 with improved BMD. Will hold bisphospho jovany medication s for now since she is having some increase in GERD symptoms. Eczema [id number] [id number] Raji Helm MD Main Office [address] [facility] [address] [place] [address] 10/29/2015 10:19:13 10/29/2015 12:03:49 Adult health examination 164610536 Z00.00 Advance di rective discussed with patient 808064018 Z71.89 will be proxy. Essential hypertension 65158630 I10 Hypothyroidism 26504513 E03.9 Hyperlipidemia 93296978 E78.5 Gastroesop hageal reflux disease 187819531 K21.9 Eczema 27594377 L30.9 Administra tion of pneumococcal vaccine 45823209 Z23 Insomnia 578867671 G47.0 0 Skin lesion 67696975 L98 .9 [id number] Raji Helm MD Main Office [address] [facility] [address] [place] [address] 10/25/2016 13:22:11 10/25/2016 14:41:01 Adult health examination 899802124 Z00.00 Osteoporosis 38870875 M8 1.0 Last DEXA scan was October 2013 with improved BMD. Will hold bisphospho jovany medication s for now Insomnia 314791963 G47.0 0 Restless legs 26312890 G 25.81 Hypothyroidism 52659821 E03.9 Gastroesop hageal reflux disease 625816222 K21.9 [id number] Raji Helm MD Main Office [address] [facility] [address] [place] [address] 10/26/2017 10:24:37 10/26/2017 11:36:39 Essential hypertension 93778172 I10 Urinary incontinence 165 054670 R32 declines treatment for mild symptoms Administra tion of pneumococcal vaccine 48059831 Z23 Active or passive immunization 623380782 Z23 Adult [facility] th examination 685950052 Z00.00 Hypothyroidism 28672286 E03.9 check in 6 mos Body mass index 25-29 - overweight 258197874 E66.3 Z68.25 Insomnia 120061659 G47.0 0 Eczema 26694165 L30.9 Osteoporosis 58705114 M8 1.0 Last DEXA scan was 2017 with improved BMD. Will hold bisphospho jovany medication s for now [id number] Raji Helm MD Main Office [address] [address] 10/21/2018 14:17:41 10/21/2018 16:06:58 Adult health examination 304821685 Z00.00 Essential hypertension 20973533 I10 Stable off of medication s Hypothyroidism 29150105 E03.9 check in 6 mos Osteoporosis 20914238 M8 1.0 Last DEXA scan was 2017 with improved BMD. Mild elevation in PTH noted. Hyperlipidemia 85084107 E78.5 112168 Raji Helm MD Main Office [address] [address] 04/23/2019 13:04:03 04/23/2019 14:15:29 Essential hypertension 87741973 I10 bp stable, no use of meds x many yrs ? if ever - ? delete this from her problem list?? 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 as is taking gbn Screening for malignant neoplasm of colon 652436398 Z12.11 due 1.21 -- rec she get one last colonoscop y as she is very healthy at 75 in order to help prevent CRC Screening for malignant neoplasm of breast 260434567 Z12.39 Vitamin D deficiency 347 31441 E55.9 461192 Michael Stern MD Main Office [address] [facility] [address] [place] [address] 08/18/2021 12:52:31 08/18/2021 13:53:35 Adult health examination 968433418 Z00.00 Essential hypertension 70510304 I10 bp stable, no use of meds x many yrs ? if ever - ? delete this from her problem list?? Hypothyroidism 46151449 E03.9 History of thyroidectomy 203415427 Z90.89 d/t grave's dz Hyperlipidemia 94034149 E78.5 Osteoporosis 38268371 M8 1.0 cont meds, f/u c endo Osteoarthr itis of knee 247497009 M17.9 f/u c ortho prn, consider turmeric qd or prn tyl Gastroesop hageal reflux disease 908637741 K21.9 consider change to pepcid ac 1-2x/day and reserve ppi for prn ac red sauce Insomnia 422257739 G47.0 0 cont gbn, f/u c sleep med as dir, agree c sleep med about trial of slowly weaning clon. as is taking gbn Screening for malignant neoplasm of colon 217566557 Z12.11 due 1.21 -- rec she get one last colonoscop y as she is very healthy at 76 in order to help prevent CRC Screening for malignant neoplasm of breast 880735953 Z12.39 Vitamin D deficiency 347 52372 E55.9 Restless legs 16850993 G 25.81 cont gbn, cont f/u c sleep med as dir Impaired f asting glycemia 733375391 R73.01 Mild memor y disturbance 245895740 R41.3 did well on testing x for address -- plays word games, has good social support - will cont to monitor Menopause present 288798 006 Z78.0 Heart murmur 33464710 R0 1.1 [id number] Michael Stern MD Main Office [address] [place] [address] 12/19/2021 13:27:22 12/19/2021 14:36:00 Heart murmur 85624766 R01.1 pt did not have echo done yet - reopened order and sent to watch parts inspector Gastroesop hageal reflux disease 732805823 K21.9 consider change to pepcid ac 1-2x/day and reserve ppi for prn ac red sauce Essential hypertension 44912460 I10 bp stable, no use of meds x many yrs ? if ever - deleted this from her problem list Impaired f asting glycemia 890985538 R73.01 Osteoporosis 08843673 M8 1.0 cont meds, f/u c endo 5.22 - apparently she was d/c'd back to pcp back in 2019 - printed consult note, reviewed c pt - her current bone density is getting worse, will refer back to endo Anxiety 45766957 F41.9 pt requested refill [id number] Michael Stern MD Main Office [address] [facility] [address] 09/06/2022 14:11:31 09/06/2022 15:26:21 Adult health examination 019941233 Z00.00 Heart murmur 60998398 R0 1.1 Gastroesop hageal reflux disease 554812467 K21.9 consider change to pepcid ac 1-2x/day and reserve ppi for prn ac red sauce Impaired f asting glycemia 406293866 R73.01 Osteoporosis 07881793 M8 1.0 cont meds, f/u c endo 5.22 - apparently she was d/c'd back to pcp back in 2019 - printed consult note, reviewed c pt - her current bone density is getting worse, will refer back to endo 2.23 - stable, cont meds as dir, cont f/u c endo Anxiety 33419223 F41.9 stable on benzo - helps to sleep Restless legs 76238272 G 25.81 cont gbn, cont f/u c sleep med as dir Hypothyroidism 92685024 E03.9 cont med, recheck tsh Hyperlipidemia 41155299 E78.5 Screening for malignant neoplasm of colon 164898530 Z12.11 pending colon later this month [id number] Michael Stern MD Main Office [address] [address] 03/05/2023 13:22:02 03/05/2023 14:28:34 Anxiety 95274061 F41.9 stable on prn benzo - helps to sleep Hypothyroidism 69353478 E03.9 stable - cont med as dir Heart murmur 26851804 R0 1.1 Concepcion - overall your echo was okay - no severe findings, just mild to moderate findings. Most likely I heard the moderate tricuspid regurgitat ion - this will serve as a good baseline if you ever need to have this checked again in the future. Osteoporosis 01304915 M8 1.0 cont meds, f/u c endo 5.22 - apparently she was d/c'd back to pcp back in 2019 - printed consult note, reviewed c pt - her current bone density is getting worse, will refer back to endo 2.23 - stable, cont meds as dir, cont f/u c endo Ear pressu re sensation 366493924 H93.8X9 no cerumen impaction - likely d/t eustachian tube dysfxn - better lately c occ sudafed PE = cont as dir, see below Dysfunctio n of eustachian tube 05787525 H69.93 rec cont ns spray and warm washcloth side of neck / occ sudafed PE prn Hyperlipidemia 52536901 E78.5 [id number] Michael Stern MD Main Office [address] [facility] [address] [facility] [place] [place] [address] 09/10/2023 13:01:53 09/10/2023 14:26:09 Adult health examination 505722118 Z00.00 colon & pap & mammo utd Anxiety 16389674 F41.9 stable on prn benzo - helps to sleep occ Hypothyroidism 41504569 E03.9 Concepcion - your tsh is too low - you're taking too much levothyrox ine - I'll send in a new script for a lower dose, get your tsh rechecked in 6-8 weeks.- Pat Osteoporosis 29190805 M8 1.0 cont meds, f/u c endo 5.22 - apparently she was d/c'd back to pcp back in 2019 - printed consult note, reviewed c pt - her current bone density is getting worse, will refer back to endo 2.24 - stable, cont meds as dir, cont f/u c endo Hyperlipidemia 76029899 E78.5 stable, not on statin Insomnia 217717532 G47.0 0 cont gbn, f/u c sleep med as dir, agree c sleep med about trial of slowly weaning clon. as is taking gbn - see rls below Osteoarthr itis of knee 492051874 M17.9 f/u c ortho prn, consider turmeric qd or prn tyl Restless legs 06393633 G 25.81 cont gbn, cont f/u c sleep med as dir [id number] Michael Stern MD Main Office [address] [place] [address] 11/07/2023 14:28:41 11/07/2023 15:37:02 Hypothyroidism 01326968 E03.9 Concepcion - your tsh is too low - you're taking too much levothyrox ine - I'll send in a new script for a lower dose, get your tsh rechecked in 6-8 weeks.- Pat 4.24 - recent tsh normal on lower dose (112mcg) - recheck in several months Anxiety 63291099 F41.9 stable on prn benzo - helps to sleep occ 4.24 - slightly increased dario score d/t situationa l stress - aneta health of her catpt requested refill of benzo - takes prn Insomnia 663219157 G47.0 0 cont gbn, f/u c sleep med as dir, agree c sleep med about trial of slowly weaning clon. as is taking gbn - see rls below 4.24 - if use prn melatonin - consider taking it p dinner - not hs Restless legs 33867422 G 25.81 cont gbn, cont f/u c sleep med as dir [id number] Michael Stern MD Main Office [address] [facility] [address] [place] [address] 02/11/2024 11:09:28 02/12/2024 23:00:42 [id number] Michael Stern MD Main Office [address] [place] [address] 02/18/2024 14:21:16 02/18/2024 15:32:37 Subarachnoid hemorrhage 86913870 I60.9 p head contusion/ strike - reviewed recent d/c summary - had negative neuro checks c trauma teamsince d/c - no problems - aneta no blurry/chema ble vision, cont to avoid asa/nsaids , can use prn tyl Hypothyroidism 30190758 E03.9 Concepcion - your tsh is too low - you're taking too much levothyrox ine - I'll send in a new script for a lower dose, get your tsh rechecked in 6-8 weeks.- Pat 4.24 - recent tsh normal on lower dose (112mcg) - recheck in several months 7.24 - Concepcion - unfortunat campbell now your tsh is too high! I rec. that you double up on your 112mcg twice/week (Sun/) and continue 1 tab daily on all other days, and recheck in ~ 6 weeks. - Pat [id number] Michael Stern MD Main Office [address] [facility] [address] [place] [address] 04/09/2024 13:48:03 04/09/2024 14:51:50 Insomnia 263685149 G47.00 cont gbn, f/u c sleep med as dir, agree c sleep med about trial of slowly weaning clon. as is taking gbn - see rls below 4.24 - if use prn melatonin - consider taking it p dinner - not hs 9.24 - patient states she is slowly weaning off of clonazepam and has been taking melatonin which is working. Hypothyroidism 98235611 E03.9 Concepcion - your tsh is too low - you're taking too much levothyrox ine - I'll send in a new script for a lower dose, get your tsh rechecked in 6-8 weeks.- Pat 4.24 - recent tsh normal on lower dose (112mcg) - recheck in several months 7.24 - Concepcion - unfortunat campbell now your tsh is too high! I rec. that you double up on your 112mcg twice/week (Sun/) and continue 1 tab daily on all other days, and recheck in ~ 6 weeks. - Pat 9.24 - TSH is down to 5.3, from 12.2. Patient is not experienci ng any side effects from dosage change.Zena clyde - your tsh is much better, close to normal! I rec. that you increase your supplement a little more - double up on your 112mcg 3x/week (Sun/Sun/ ri) and continue 1 tab daily on all other days. - Patrecheck tsh in a few months Anxiety 75712857 F41.9 stable on prn benzo - helps to sleep occ 4.24 - slightly increased dario score d/t situationa l stress - aneta health of her catpt requested refill of benzo - takes prn 9.24 - about same level of stress since last visit - dario zero, stable Subarachno id hemorrhage 78555954 I60.9 p head contusion/ strike - reviewed recent d/c summary - had negative neuro checks c trauma teamsince d/c - no problems - aneta no blurry/chema ble vision, cont to avoid asa/nsaids , can use prn tyl 9.24 - facial bruising / ecch resolved [id number] Michael Stern MD Main Office [address] [place] [address] 09/15/2024 13:41:18 09/15/2024 15:33:50 Adult health examination 265481411 Z00.00 colon & pap & mammo utd Advance di rective discussed with patient 580715170 Z71.89 discussed with patient. Osteoporosis 55369369 M8 1.0 cont meds, f/u c endo 5.22 - apparently she was d/c'd back to pcp back in 2019 - printed consult note, reviewed c pt - her current bone density is getting worse, will refer back to endo 2.24 - stable, cont meds as dir, cont f/u c endo 2.25 - stable cont meds as dir, cont f/u c endo, appointmen t in January Anxiety 64837726 F41.9 stable on prn benzo - helps to sleep occ 4.24 - slightly increased dario score d/t situationa l stress - aneta health of her catpt requested refill of benzo - takes prn 9.24 - about same level of stress since last visit - dario zero, stable 2.25 - stable; d/c clonazepam herself - doing well lately Restless legs 37516507 G 25.81 hasn't used gbn in a while, cont f/u c sleep med prnrather taking hylands leg cramp otc - very helpful Hypothyroidism 68688040 E03.9 Concepcion - your tsh is too low - you're taking too much levothyrox ine - I'll send in a new script for a lower dose, get your tsh rechecked in 6-8 weeks.- Pat 4.24 - recent tsh normal on lower dose (112mcg) - recheck in several months 7.24 - Concepcion - unfortunat campbell now your tsh is too high! I rec. that you double up on your 112mcg twice/week (Sun/) and continue 1 tab daily on all other days, and recheck in ~ 6 weeks. - Pat 9.24 - TSH is down to 5.3, from 12.2. Patient is not experienci ng any side effects from dosage change.Zena clyde - your tsh is much better, close to normal! I rec. that you increase your supplement a little more - double up on your 112mcg 3x/week (Sun/Sun/ ri) and continue 1 tab daily on all other days. - Patrecheck tsh in a few months 2.25 - Concepcion - we overshot your tsh by a little - rec. that you decrease your supplement a little - double up on your 112mcg only 2x/week (Sun/Sun) and continue 1 tab daily on all other days, and recheck in ~ 2 months (already ordered) Hyperlipidemia 89895005 E78.5 stable, not on statin Vitamin D deficiency 347 01876 E55.9 Impaired f asting glycemia 895306297 R73.01 Elevated blood-pressure reading without diagnosis of hypertension 001999400 R03.0 1st elevated bp reading - recheck next monthrec low salt diet [id number] Michael Stern MD Main Office [address] [facility] [address] [place] [address] 10/22/2024 13:57:00 10/22/2024 15:21:48 Hypothyroidism 96406099 E03.9 Concepcion - your tsh is too low - you're taking too much levothyrox ine - I'll send in a new script for a lower dose, get your tsh rechecked in 6-8 weeks.- Pat 4.24 - recent tsh normal on lower dose (112mcg) - recheck in several months 7.24 - Concepcion - unfortunat campbell now your tsh is too high! I rec. that you double up on your 112mcg twice/week (Sun/) and continue 1 tab daily on all other days, and recheck in ~ 6 weeks. - Pat 9.24 - TSH is down to 5.3, from 12.2. Patient is not experienci ng any side effects from dosage change.Zena clyde - your tsh is much better, close to normal! I rec. that you increase your supplement a little more - double up on your 112mcg 3x/week (Sun/Sun/ ri) and continue 1 tab daily on all other days. - Patrecheck tsh in a few months 2.25 - Concepcion - we overshot your tsh by a little - rec. that you decrease your supplement a little - double up on your 112mcg only 2x/week (Mon/Sun) and continue 1 tab daily on all other days, and recheck in ~ 2 months (already ordered) 3.25 - last TSH was normal, pt continue on current regimen. Vitamin D deficiency 347 61160 E55.9 Stable, continue on supplement . Impaired f asting glycemia 691962830 R73.01 A1C within normal limits at 5.3% Essential hypertension 43975298 I10 3.25 - had elevated BP in last visit to office and second elevated BP reading today, will start on olmesartan 20 mg. Discussed low-sodium and DASH diet as well as importance of regular physical activity in managing BP. Health Concerns Section Related Observation LastModified by Organization Detai ls LastModified Time None Recorded Concern Status LastModified by Organization Details LastModified Time None Recorded Advance Directives Directive Y: Payers Insurance Date Sequence Insurance Name Policy Number Policy Ferrell Covered Member ID Ferrell Member ID Guarantor Name 04/05/2021 1 [employer]VANTAGE PLAN (MEDICARE REPLACEMENT HMO) [id number] Concepcion R R Thibeault [id number] Concepcion Thibeault 11/04/2024 1 [employer]AGE PLAN (MEDICARE REPLACEMENT HMO) [id number] Concepcion R Thibeault [id number] Concepcion Thibeault 08/18/2021 1 [facility] [id number] Concepcion R Thibeault [id number] Concepcion Thibeault Notes Date Note Type Note Provider Name and Address Organization Details Recorded Time 02/11/2024 text/html Hospitalization Contact RecordReported bypatient.Follow UpHospital[facility]; admit date: (Please enter in format 'MM/DD/YYYY') (02/06/24); date of discharge: (Please enter in format 'MM/DD/YYYY') (02/07/24); date of contact: (Please enter in format 'MM/DD/YYYY') (02/11/24)Notes:Medic are covered inpatient stay? no [facility]NE Med adv planTOC with in 48 working hours? yes HCP on file? yesMOLST on file? noDischarge Summary available? yesPatient presented as a direct admission to the trauma service for a SAH. She fell out of bed early Sunday morning. CT imaging was significant for a right occipital bone fx with associated scalp hematoma and a right frontal SAH. She has remained neuro intact w/o concern for additional traumatic injuries on exam. Pt was observed overnight and found to have no changes to physical exam. Pt was d/c on hospital day 1 with communication to follow up as needed. Christiano Zheng PA-C [address] [address], [place], [address], [facility] [place] 02/12/2024 23:00:40 02/18/2024 text/html Hospitalization Contact RecordReported bypatient.Follow UpHospital: [facility]; admit date: (Please enter in format 'MM/DD/YYYY') (02/06/24); date of discharge: (Please enter in format 'MM/DD/YYYY') (02/07/24); date of contact: (Please enter in format 'MM/DD/YYYY') (02/11/24)Notes:Medic are covered inpatient stay? no [facility]NE Med adv planTOC with in 48 working hours? yes HCP on file? yesMOLST on file? noDischarge Summary available? yesPatient presented as a direct admission to the trauma service for a SAH. She fell out of bed early Sunday morning. CT imaging was significant for a right occipital bone fx with associated scalp hematoma and a right frontal SAH. She has remained neuro intact w/o concern for additional traumatic injuries on exam. Pt was observed overnight and found to have no changes to physical exam. Pt was d/c on hospital day 1 with communication to follow up as needed. reviewed dc summary - was admitted to trauma service to get q 15min neuro checks - did well, was d/c'd homepast few days - feeling better, no double/blurry vision, being cautious -- pt states R orbit ecch is significantly improved Christiano Zheng PA-C [address] [address], [place], [address], [facility] [place] 02/18/2024 15:34:47 04/09/2024 text/html Anxiety/Depressi onRep orted bypatient.Quality:sym ptoms improved Severity:denies suicidal ideations Context:no major life stressors Associated Symptoms:denies homicidal ideations 79 year old female presents for hypothyroid, insomnia, and anxiety follow up. Christiano Zheng PA-C [address] [facility] [address], [place], [address], [facility] [place] 04/09/2024 15:03:49 09/15/2024 text/html Medicare Annual Wellness VisitReported bypatient.Diet and Nutrition:healthy diet; discussed vitamin and supplement use; discussed maintaining calcium balance Fracture Risk:no history of fractures; no recent explained fracture; no sudden unexplained fractures Physical Activity:good physical condition;does not exercise on a regular basis;decreased physical activity Depression Risk:never feels sad, empty, or tearful; no loss of interest in activities; no significant changes in weight; no sleep disturbances or insomnia; no agitation; no loss of energy; no feelings of worthlessness or guilt; no thoughts of suicide; no history of depression; no history of mood disorders Orientation:no disorientation to time; no disorientation to date; no disorientation to place; Concentration and Memory:no decreased concentrating ability; no memory lapses or loss Speech/Motor difficulties:no speech difficulties; no difficulty expressing formulated concepts Hearing:no loss of hearing Vision:no vision problems Activities of Daily Living:able to bathe with limited or no assistance; able to contol urination and bowels; able to dress with limited or no assistance; able to feed self with limited or no assistance; able to get out of chair or bed with limited or no assistance; able to groom with limited or no assistance; able to toilet with limited or no assistance Instrumental Activities of Daily Living:able to do house work with limited or no assistance; able to grocery shop with limited or no assistance; able to manage medications with limited or no assistance; able to manage money with limited or no assistance; able to prepare meals with limited or no assistance; able to use the phone with limited or no assistance Falls Risk Assessment:no frequent falls while walking;dizziness/sandrine tigo(if on empty stomach when take vitamins -- rec drink extra glass of water) Home Safety:good lighting in the home Has not been taking Clonazepam and gabapentin. Christiano Zheng PA-C [address] [address], [place], [address], [facility] [place] 09/15/2024 17:33:22 10/22/2024 text/html Hypertension F/UReported bypatient.Associated Symptoms:no dizziness; no lightheadedness; no chest pain; no shortness of breath; no palpitations; no edema; no calf pain with exertion Lifestyle:limiting/av oiding salt;not exercising regularly here for bp check, not on bp meds Christiano Zheng PA-C [address] [facility] [address], [place], [address], [facility] 10/22/2024 15:20:04 OBGyn Episode No OBEpisode recorded.
== END 2025-01-28 14:20 | disposition home or self-care (01) ==
LOC: HO.ENCR 13:45
PROVIDERS: PCP Physician Assistant Medical; Visit Provider Internal Medicine Endocrinology, Diabetes & Metabolism
DX: M81.0 Age-related osteoporosis without current pathological fracture (principal)
CPT/HCPCS: 99213

== ENCOUNTER → 2025-01-28 13:44 | Outpatient (BNVA) | payer MEDICARE, SELFPAY | PROVIDERS: PCP Physician Assistant Medical; Visit Provider Internal Medicine Endocrinology, Diabetes & Metabolism | DX: M81.0 Age-related osteoporosis without current pathological fracture (principal) | CPT/HCPCS: 99212 ==